=== PATIENT | female | born 1985 | race Caucasian/White ===

== ENCOUNTER 2024-07-12 04:44 | Emergency (ER) | payer OTHER, SELFPAY ==
[2024-07-12 04:46] VITALS: BP 136/94; PULSE 92; RESP 16; TEMP 37.1; O2SAT 98; BMI 32.9
[2024-07-12 05:17] LABS: Absolute Lymphocyte Count 1.87 X10^3/uL (0.83-4.51); Absolute Neutrophil Count 8.5 X10^3/uL (2.0-7.7); Basophil# 0.07 X10^3/uL; Basophil% 0.6 % (0-1); Eosinophils% 0.9 % (0-5); Hematocrit 39.7 % (37-47); Hemoglobin 13.7 g/dL (12.0-15.0); Lymphocyte # 1.87 X10^3/ul (0.83-4.51); Lymphocyte % 16.8 % (19-41); Mean Corp Hgb Conc 34.5 g/dL (32-36); Mean Corpuscular Hgb 27.9 pg (27.0-32.0); Mean Corpuscular Volume 80.9 fL (81-99); Mean Platelet Vol. 8.6 fl (6.2-12.0); Monocyte# 0.54 X10^3/uL; Monocyte% 4.9 % (0-10); NRBC Flagged by Analyzer 0 % (0-5); Neutrophil # 8.45 X10^3/uL (2.7-7.7); Platelet Count 511 K/mm3 (150-450); RBC Distribution Width SD 37.7 fl (35.1-43.9); Red Blood Count 4.91 M/mm3 (4.2-5.4); White Blood Count 11.1 K/mm3 (4.4-11.0)
[2024-07-12 05:36] LABS: Anion Gap 8 (5-15); BUN 7 mg/dL (7-18); BUN/Creat Ratio 9.7 RATIO (10-20); Calcium,Total 9.1 mg/dL (8.5-10.1); Chloride 110 mmol/L (98-107); Creatinine, Serum 0.72 mg/dL (0.55-1.02); EST Glomerular Filtration Rate 94 mL/min (>60); Est Glom Filt Rate - Afr Amer 114 mL/min (>60); Estimated Creatinine Clearance 113.76 ml/min; Glucose 120 mg/dL (74-106); Potassium 3.5 mmol/L (3.5-5.1); Sodium Level 140 mmol/L (136-145)
--- NOTE | 2024-07-12 05:36 | ED.RN ---
[facility] CALLED, SPOKE TO ROBBY. SHE REQUESTED PT MEDICAL CLEARANCE AND SOCIAL WORK ASSESSMENT AND THEY WOULD BE WORKING ON PLACEMENT AND GIVE US A CALL WITH ANY UPDATES.
[2024-07-12 05:37] LABS: Internal QC Validated? YES +Cl - CLEAR BKGD; Pregnancy, Serum, hCG Quali. NEGATIVE Negative
[2024-07-12 05:40] LABS: Amphetamine Urine VISTA NEGATIVE (<1000 ng/mL); Barbiturate Urine VISTA NEGATIVE (< 200 ng/mL); Benzodiazepine Urine VISTA NEGATIVE (< 200 ng/mL); Cocaine Urine VISTA NEGATIVE (< 300 ng/mL); Ecstacy Urine VISTA NEGATIVE (< 500 ng/mL); Methadone Urine VISTA NEGATIVE (< 300 ng/mL); PCP Urine VISTA NEGATIVE (< 25 ng/mL); THC Urine VISTA NEGATIVE (< 50 ng/mL); Vista UDS pH Range 5
[2024-07-12] MEDS: Acetaminophen 500 MG Tablet 1000 MG PO (05:55)
[2024-07-12] MEDS: Ondansetron ODT 4 MG Tablet PO (05:55)
[2024-07-12] MEDS: LORazepam 1 MG Tablet PO (05:55)
--- NOTE | 2024-07-12 06:46 | EDS_ITS ---
HPI History of Present Illness Chief Complaint: Mental Health Informant: patient Narrative Narrative: Patient is a 39-year-old female with past medical history of depression. She had to be admitted to the psychiatric center roughly 6 years ago secondary to exacerbation of her depression. However she states that she had never has attempted to harm herself. The patient states that she is currently going through a divorce and her significant other is making life very difficult for her. She states this is worsening her depression. She states she is now having intermittent thoughts of self-harm. She denies any recent drug overdose or suicide attempt. She states she does not have a plan. She reports that she contacted crisis center this evening because of her worsening depression and they advised her to go to the hospital for evaluation [facility] Medical History Depression Anxiety Home Medications ?Medication ?Instructions ?Recorded ?Last Taken ?Type NK 07/12/24 Unknown History Allergy/AdvReac Type Severity Reaction Status Date / Time No Known Allergies Allergy Verified 07/12/24 04:47 Surgical History (Updated 07/12/24 @ 04:49 by Leann Miller) Hx of cholecystectomy History of delivery Social History Smoking Status: Current every day smoker tobacco type: e-cigarettes ROS ROS ED Constitutional Constitutional ED: Denies chills or fever(s) ENT ENT ED: Denies sore throat Cardiovascular Cardiovascular: Denies chest pain Respiratory/Chest Respiratory/Chest: Denies cough or dyspnea Gastrointestinal Gastrointestinal: Denies abdominal pain, diarrhea, nausea or vomiting Genitourinary Genitourinary ED: Denies dysuria Musculoskeletal Musculoskeletal: Denies myalgias Integumentary Denies rash Neurologic Neurologic: Denies headache(s) Psychiatric Psychiatric: Reports anxiety, depression and suicidal thoughts; Denies suicidal ideation Hematologic/Lymphatic Hematologic/Lymphatic: Denies easy bleeding or easy bruising EXAM Physical Exam Const Vital Signs: 07/12/24 04:46 Temperature 98.7 F Temperature Source Oral Pulse Rate 92 Respiratory Rate 16 Blood Pressure 136/94 H Blood Pressure Mean 108 Pulse Ox 98 Positive well nourished and well developed General Appearance ED: well developed; Negative for pallor HEENT HEENT Narrative: Normocephalic atraumatic Eyes PERRL and EOMs intact bilaterally General Eye ED: Negative for scleral icterus Neck supple Resp normal respiratory effort and clear to auscultation bilaterally Cardio regular rate and regular rhythm GI normal to inspection, nondistended, normoactive bowel sounds, non-tender, non- distended and no masses Auscultation: normoactive bowel sounds Palpation: soft Extremity normal to inspection Neuro oriented x3, CN's II-XII intact bilaterally and no sensory deficits noted Sensorium / Orientation: alert Motor Exam: strength 5/5 throughout Psych Psych Narrative: Depressed and tearful affect without homicidal or suicidal ideation Mood & Affect: depressed and tearful Skin no rashes or lesions noted and no wounds General Skin Exam: Negative for jaundice or pallor MDM MDM MDM Narrative Medical decision making narrative: Patient presented to the ER with stable vitals. She reported a longstanding history of anxiety and depression but states that she has been off her meds for quite some time as her symptoms were controlled. However with her recent divorce and life stressors her depression has been worsening. As she has not had intermittent thoughts of self-harm I did feel it appropriate to undergo a psychiatric evaluation. The patient had basic lab work and a urine sample obtained secondary to this which revealed no clinically significant findings. The patient is overall low risk for self-harm as she is never attempted and does not have a plan. However as she has required previous admission secondary to her depression psychiatric evaluation was appropriate. I did ask the patient if she felt that her depression this evening/morning was severe enough to the point where she would need placed voluntarily as she did 6 years ago. The patient states she does not feel she is to that level of symptoms yet. Therefore the patient was medically cleared and the patient was also evaluated by psychiatry/crisis center. They agree she is low risk and therefore can follow- up as an outpatient and is otherwise safe for discharge History & Record Review Discussion w/independent historian: Patient Lab Data Attestation: I reviewed the patient's lab results. Labs: Laboratory Results - last 24 hr 07/12/24 07/12/24 04:58 05:00 WBC 11.1 H RBC 4.91 Hgb 13.7 Hct 39.7 MCV 80.9 L MCH 27.9 MCHC 34.5 RDW Std Deviation 37.7 RDW Coeff of Jessica 13.0 Plt Count 511 H MPV 8.6 Immature Gran % (Auto) 0.800 Neut % (Auto) 76.0 H Lymph % (Auto) 16.8 L [place] % (Auto) 4.9 Eos % (Auto) 0.9 Baso % (Auto) 0.6 Absolute Neuts (auto) 8.5 H Absolute Lymphs (auto) 1.87 Nucleated RBC % 0 Sodium 140 Potassium 3.5 Chloride 110 H Carbon Dioxide 23.0 Anion Gap 8 BUN 7 Creatinine 0.72 Estim Creat Clear Calc 113.76 Est GFR (MDRD) Af Amer 114 Est GFR (MDRD) Non-Af 94 BUN/Creatinine Ratio 9.7 L Glucose 120 H Calcium 9.1 Serum , Qual NEGATIVE Urine Opiates Screen NEGATIVE Urine Methadone Screen NEGATIVE Ur Barbiturates Screen NEGATIVE Ur Phencyclidine Scrn NEGATIVE Ur Amphetamines Screen NEGATIVE MDMA (Ecstasy) Screen NEGATIVE U Benzodiazepines Scrn NEGATIVE Urine Cocaine Screen NEGATIVE U Cannabinoids Screen NEGATIVE Ur Drug Screen Comment Ethyl Alcohol 17.0 Discharge Plan Triage Chief Complaint: Mental Health ED Provider: Ray Guajardo Dx/Rx/DC Orders Clinical Impression: Depression, Anxiety Instructions: Depression SCI, Depression: Tips to Help Yourself Prescriptions: No Action NK Primary Care Provider: Brooklyn Rosado NP Referrals: Brooklyn Rosado NP, [facility] [Primary Care Provider] - Activity Restrictions/Additional Instructions: Please follow-up with psychiatry as directed by crisis center and return to the ER should you have any further concerns Print Language: Slovenian Disposition Disposition: Home, Self Care
[2024-07-12 07:48] VITALS: BP 113/74; PULSE 62; RESP 15; TEMP 36.3; O2SAT 99
== END 2024-07-12 07:49 | disposition home or self-care (01) ==
PROVIDERS: Emergency Provider Emergency Medicine; PCP Registered Nurse; Visit Provider Emergency Medicine
DX: F32.A Depression, unspecified (principal); F41.9 Anxiety disorder, unspecified; F17.290 Nicotine dependence, other tobacco product, uncomplicated
CPT/HCPCS: 80048; 80307; 82077; 84703; 85025; 99283